=== PATIENT | male | born 1950 | race Caucasian/White ===

== ENCOUNTER 2017-07-21 09:39 | Day surgery (SDC) | payer MEDICARE, OTHER ==
[~2017-07-21] VITALS: Ht 170.2 cm; Wt 74.1 kg
[~2017-07-21 09:39] MED LIST: AMBIEN 10MG10 MG PO; ASPIRIN 81M81 MG/TA2 PO; FLEXERIL 1010 MG/TAB PO; JANUMXR1000-50 PO; NEURONTIN100 MG/CAP PO; PRINIVIL10 MG PO
[2017-07-21] MEDS ORDERED: CLARITIN 1010 MG/TAB PO (09:59)
[2017-07-21] MEDS ORDERED: VITAMIN D31000 I1 PO (10:00)
[2017-07-21] MEDS ORDERED: LIPITOR 40MG TA40 MG PO (10:00)
[2017-07-21 10:02] VITALS: BP 145/78; PULSE 81; TEMP 98.3
[2017-07-21 12:10] VITALS: BP 127/78; PULSE 71; TEMP 97
[2017-07-21 12:25] VITALS: BP 131/78; PULSE 68
[2017-07-21 12:40] VITALS: BP 124/75; PULSE 67
[2017-07-21 14:46] VITALS: BP 1220/85; PULSE 67
== END 2017-07-21 12:55 | disposition home or self-care (01) ==
LOC: SDCO 09:39
DX: Z12.11 Encounter for screening for malignant neoplasm of colon (principal); C18.6 Malignant neoplasm of descending colon; K52.9 Noninfective gastroenteritis and colitis, unspecified; K57.30 Diverticulosis of large intestine without perforation or abscess without bleeding; D64.9 Anemia, unspecified; E11.9 Type 2 diabetes mellitus without complications; Z86.010 Personal history of colon polyps
CPT/HCPCS: OP; J2250; J3010; J7030

== ENCOUNTER → 2017-08-08 | Outpatient (CLI) | payer MEDICARE, OTHER ==
[~2017-08-08] MED LIST changes: +CLARITIN 1010 MG/TAB PO; +LIPITOR 40MG TA40 MG PO; +VITAMIN D31000 I1 PO
== END ==
LOC: COL.RAD 13:58
DX: C18.0 Malignant neoplasm of cecum (principal); K63.5 Polyp of colon; E11.9 Type 2 diabetes mellitus without complications
CPT/HCPCS: Q9967

== ENCOUNTER 2017-08-11 09:23 | Inpatient (IN) | payer MEDICARE, OTHER ==
[~2017-08-11] VITALS: Ht 170.2 cm; Wt 77.7 kg
[~2017-08-11 09:23] MED LIST changes: +JANUMET 1000 MG1 TA1 PO; -JANUMXR1000-50 PO
[2017-08-23] VITALS (9 sets, daily range): BP systolic 120–154; BP diastolic 72–82; PULSE 72–93; TEMP 98.7–99.4
[2017-08-23] MEDS ORDERED: PRINIVIL20 MG PO (11:20)
[2017-08-23] MEDS ORDERED: DESYREL 50MG50 MG PO (11:23)
[2017-08-23] MEDS ORDERED: LEADER EYE ITCH5 ML OP (11:24)
[2017-08-24] VITALS (7 sets, daily range): BP systolic 116–158; BP diastolic 54–88; PULSE 71–110; TEMP 97.3–99.2
[2017-08-24 06:35] LABS: HEMATOCRIT 37.9 % (42.0-52.0); HEMOGLOBIN 12.6 g/dl (13.5-18.0)
[2017-08-24 06:54] LABS: CALCIUM 8.3 mg/dL (8.4-10.2); CREATININE, serum 0.95 mg/dL (0.66-1.25); POTASSIUM 4.1 mmol/L (3.4-5.0)
[2017-08-25 02:25] VITALS: BP 129/79; PULSE 88; TEMP 98.4
[2017-08-25 04:54] VITALS: BP 144/76; PULSE 76; TEMP 98.5
[2017-08-25 09:26] VITALS: BP 140/72; PULSE 74; TEMP 98.5
[2017-08-25 13:54] VITALS: BP 146/81; PULSE 88; TEMP 98.6
== END 2017-08-25 15:54 | disposition home or self-care (01) | DRG 331 ==
LOC: INPTSU 08-23 10:48 → SURG 08-23 10:48
PROVIDERS: Surgery
PROC: 0DTJ4ZZ Resection of Appendix, Percutaneous Endoscopic Approach (ICD-10-PCS; 2017-08-23)
PROC: 8E0W4CZ Robotic Assisted Procedure of Trunk Region, Percutaneous Endoscopic Approach (ICD-10-PCS; 2017-08-23)
PROC: 0DTF4ZZ Resection of Right Large Intestine, Percutaneous Endoscopic Approach (ICD-10-PCS; principal; 2017-08-23 14:15)
DX: C18.1 Malignant neoplasm of appendix (principal); I10 Essential (primary) hypertension; E11.9 Type 2 diabetes mellitus without complications
CPT/HCPCS: A4314; A9284; J0330; J0360; J0690; J1100; J1650; J1885; J2270; J2405; J2704; J2710; J3010; J7030

== ENCOUNTER 2017-09-15 05:37 | Day surgery (SDC) | payer MEDICARE, OTHER ==
[~2017-09-15] VITALS: Ht 170.2 cm; Wt 78.1 kg
[~2017-09-15 05:37] MED LIST changes: +DESYREL 50MG50 MG PO; +LEADER EYE ITCH5 ML OP; +PRINIVIL20 MG PO
[2017-09-15 05:58] VITALS: BP 141/73; PULSE 88; TEMP 98.2
[2017-09-15 08:15] VITALS: BP 108/67; PULSE 73; TEMP 97.6
[2017-09-15 08:30] VITALS: BP 115/71; PULSE 66
[2017-09-15] MEDS ORDERED: NORCO 325 MG-51 TAB PO (08:33)
[2017-09-15 08:45] VITALS: BP 113/68; PULSE 64
[2017-09-15 09:00] VITALS: BP 112/74; PULSE 70
== END 2017-09-15 09:17 | disposition home or self-care (01) ==
LOC: SDCO 05:37
DX: C18.1 Malignant neoplasm of appendix (principal); Z79.82 Long term (current) use of aspirin; I10 Essential (primary) hypertension; E11.9 Type 2 diabetes mellitus without complications; Z79.84 Long term (current) use of oral hypoglycemic drugs; G47.30 Sleep apnea, unspecified
CPT/HCPCS: C1788; J1644; J2250; J2704

== ENCOUNTER 2020-10-05 10:25 | Day surgery (SDC) | payer MEDICARE, OTHER ==
[~2020-10-05] VITALS: Ht 170.2 cm; Wt 78.5 kg
[~2020-10-05 10:25] MED LIST changes: +NORCO 325 MG-51 TAB PO
[2020-10-05 11:21] VITALS: BP 139/66; PULSE 62; TEMP 98.2
[2020-10-05] MEDS ORDERED: JANUMET 1000 MG1 TA1 PO (11:29)
[2020-10-05] MEDS ORDERED: LIDODERM 5% PATC1 EA TP (11:30)
[2020-10-05] MEDS ORDERED: TYLENOL 500MG500 MG PO (11:30)
[2020-10-05] MEDS ORDERED: ZYRTEC 10MG10 MG PO (11:32)
--- NOTE | 2020-10-05 11:40 | NUR ---
TO RM 2 AT 1039- CALL LIGHT IN REACH AT BEDSIDE.
[2020-10-05 13:50] VITALS: BP 137/74; PULSE 58; TEMP 97.8
--- NOTE | 2020-10-05 13:50 | NUR ---
TO RM 2 PER CART FROM PACU. ALERT ORIENTED X3, TALKING TO STAFF AND . DENIES PAIN OR DISCOMFORT. DENIES NAUSEA OR VOMITING.
[2020-10-05 13:59] VITALS: TEMP 98.2
[2020-10-05 14:05] VITALS: BP 140/67; PULSE 64
--- NOTE | 2020-10-05 14:05 | NUR ---
RECEIVED SPRITE AND TOAST /PEANUT BUTTER.
[2020-10-05 14:20] VITALS: BP 138/66; PULSE 63
--- NOTE | 2020-10-05 14:20 | NUR ---
DRANK AND ATE 100%. RECEIVED CUP OF WATER.
--- NOTE | 2020-10-05 14:36 | NUR ---
AMBULATED TO BATHROOM AND UNABLE TO VOID. RECEIVED 2ND CUP OF WATER AND PATIENT UP WALKING AROUND.
--- NOTE | 2020-10-05 15:10 | NUR ---
CAME TO NURSES DESK AND STATED HE PEED. WHEN I ASK TO LOOK AT IT HE STATED HE FLUSHED AND IT WAS ENOUGH. I OFFERED MORE TO DRINK SO HE COULD PEE AGAIN BEFORE LEAVING. PATIENT TOLD NURSE I HAVE DONE ENOUGH AND READY TO GO HOME.
--- NOTE | 2020-10-05 15:15 | NUR ---
RECEIVED DISCHARGE INSTRUCTIONS AND VERBALIZED UNDERSTANDING WITH AT BEDSIDE. I STRONGLY INSRUCTED PATIENT IF IS UNABLE TO PEE AT HOME HE WOULD NEED TO GO TO THE ER TO HAVE A CATHETER PLACED. PATIENT VERBALIZED UNDERSTANDING. DISCONTINUED IV AND INT- CATHETER INTACT.
--- NOTE | 2020-10-05 15:30 | NUR ---
DISCHARGED PER WC BY NURSING STAFF TO PRIVATE CAR IN CARE OF [facility].
== END 2020-10-05 15:38 | disposition home or self-care (01) ==
LOC: SDCO 10:25
DX: D30.3 Benign neoplasm of bladder (principal); N32.3 Diverticulum of bladder; H52.4 Presbyopia; R33.8 Other retention of urine; I10 Essential (primary) hypertension; E78.5 Hyperlipidemia, unspecified; G47.33 Obstructive sleep apnea (adult) (pediatric); E11.9 Type 2 diabetes mellitus without complications; Z20.822 Contact with and (suspected) exposure to COVID-19; Z79.899 Other long term (current) drug therapy; Z79.82 Long term (current) use of aspirin; Z79.84 Long term (current) use of oral hypoglycemic drugs; Z99.89 Dependence on other enabling machines and devices; Z85.038 Personal history of other malignant neoplasm of large intestine
CPT/HCPCS: J0690; J1100; J2405; J2704; J3010; J7120

== ENCOUNTER → 2022-06-16 | Outpatient (CLI) | payer MEDICARE, OTHER ==
[~2022-06-16] MED LIST changes: +LIDODERM 5% PATC1 EA TP; +TYLENOL 500MG500 MG PO; +ZYRTEC 10MG10 MG PO
== END ==
LOC: COL.RAD 08:54
DX: C18.1 Malignant neoplasm of appendix (principal); M51.36 Other intervertebral disc degeneration, lumbar region; M25.78 Osteophyte, vertebrae
CPT/HCPCS: Q9967

== ENCOUNTER → 2023-06-28 | Outpatient (CLI) | payer MEDICARE, OTHER ==
[~2023-06-28] MED LIST changes: +Iohexol 300 - 100 ML VIAL IV ONE; +NS 100 ML IV SCH
== END ==
LOC: CANSCHCLI → COL.RAD 12:23
DX: C18.1 Malignant neoplasm of appendix (principal); Z98.890 Other specified postprocedural states
CPT/HCPCS: Q9967